=== PATIENT | male | born 1945 | race Caucasian/White ===

== ENCOUNTER 2018-05-10 07:31 | Outpatient (CLI) | payer MEDICARE, OTHER ==
--- NOTE | 2018-05-10 09:23 | Ultrasound Report ---
Procedure Date: 05/10/2018 Accession Number: [id number] / [id number] Procedure: US - Aorta Screening CPT Code: FULL RESULT: EXAM: Aorta Screening DATE: 05/10/2018 8:23 AM CLINICAL HISTORY: 73-year-old male with thrombocytopenia management hydroxyurea. COMPARISON: None. TECHNIQUE: Real-time sonographic imaging of retroperitoneal vascular structures, including color-flow, was performed by the mental health social worker. Multiple construction representative static images were saved for review. FINDINGS: Aorta: The abdominal aorta was adequately visualized and demonstrates subjective atherosclerotic disease. No evidence for abdominal aortic aneurysm. The proximal aorta in sagittal plane measures up to 2.8 cm, the mid aorta measures 2.4 x 2.5 cm the distal aorta measures 2.6 x 2.7 cm. Iliac Vessels: The right iliac artery measures 1.8 x 1.8 cm, ectatic. The left iliac artery measures 1.6 x 1.5 cm, top normal. Other: None. 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 Would recommend continued annual screening. [facility]
== END 2018-05-10 07:32 | disposition home or self-care (01) ==
LOC: DI 07:31
PROVIDERS: ATTEND Internal Medicine
DX: Z13.6 Encounter for screening for cardiovascular disorders (principal); I77.811 Abdominal aortic ectasia
CPT/HCPCS: 76706

== ENCOUNTER 2022-01-04 10:55 | Outpatient (CLI) | payer MEDICARE, OTHER ==
--- NOTE | 2022-01-04 13:32 | XRAY Report ---
PROCEDURE: Abdomen 1 View X-Ray INDICATIONS: CONSTIPATION TECHNIQUE: One view of the abdomen acquired. COMPARISON: None FINDINGS: Surgical changes and devices: None. Bowel: Bowel gas pattern is normal. Moderate fecal load. Soft tissues: No suspicious abdominal calcifications. Visualized solid organ contours appear normal in size. Bones: No suspicious bony lesions. IMPRESSION: Moderate fecal load. Normal bowel gas pattern. Reviewed by: Jose Hodges MD on 01/04/2022 1:31 PM PDT Approved by: Jose Hodges MD on 01/04/2022 1:31 PM PDT Station ID: [id number]
== END 2022-01-04 10:56 | disposition home or self-care (01) ==
LOC: DI 10:55
PROVIDERS: ATTEND Student in an Organized Health Care Education/Training Program
DX: K59.00 Constipation, unspecified (principal)